=== PATIENT | male | born 1955 | race Caucasian/White ===

== ENCOUNTER 2017-12-01 12:16 | Emergency (ER) | payer SELFPAY ==
[~2017-12-01] VITALS: Ht 188 cm; Wt 74.0 kg
[~2017-12-01 12:16] MED LIST: Z.0.NO CURRENT MEDS
[2017-12-01 12:20] VITALS: BP 125/71; PULSE 74; RESP 16; TEMP 98.4; O2SAT 97
--- NOTE | 2017-12-01 12:32 | PD ---
HPI Chief Complaint: Neuro Symptoms/ Deficits Time Seen by Provider: 12:18 Travel History International Travel<30 days: No Contact w/Intl Traveler<30days: No Traveled to known affect area: No History of Present Illness HPI 62-year-old male complains of right-sided facial drooping and irritation to the right eye. Patient states that symptoms started yesterday. Patient states that he could not close the right eyelid completely since yesterday. Patient is complaining of tearing from the right eye. Patient complains of hearing trouble on the right ear. Patient states that the food taste differently since yesterday. Patient denies any headache. Patient denies any visual change. Patient denies any neck pain. Patient denies any chest pain or shortness of breath. Patient denies abdominal pain. Patient denies any focal weakness or numbness of the extremity. PFSH Past Medical History Diminished Hearing: No Social History Alcohol Use: No Tobacco Use: No Substance Use: No Allergies-Medications (Allergen,Severity, Reaction): Coded Allergies: No Known Allergies (Verified Adverse Reaction, Unknown, 12/01/17) Reported Meds & Prescriptions Reported Meds & Active Scripts Active No Active Prescriptions or Reported Medications Review of Systems General / Constitutional: No: Fever Eyes: Positive: Redness, Foreign Body Sensation, Tearing, No: Visual changes HENT: No: Headaches Cardiovascular: No: Chest Pain or Discomfort Respiratory: No: Shortness of Breath Gastrointestinal: No: Abdominal Pain Genitourinary: No: Dysuria Musculoskeletal: No: Pain Skin: No Rash Neurologic: Positive: Weakness Psychiatric: No: Depression Endocrine: No: Polydipsia Hematologic/Lymphatic: No: Easy Bruising Physical Exam Narrative GENERAL: Well-nourished, well-developed patient. SKIN: Focused skin assessment warm/dry. HEAD: Normocephalic. EYES: No scleral icterus. No injection or drainage. Pupils 2 mm equal reactive. NECK: Supple, trachea midline. No JVD or lymphadenopathy. CARDIOVASCULAR: Regular rate and rhythm without murmurs, gallops, or rubs. RESPIRATORY: Breath sounds equal bilaterally. No accessory muscle use. GASTROINTESTINAL: Abdomen soft, non-tender, nondistended. MUSCULOSKELETAL: No cyanosis, or edema. BACK: Nontender without obvious deformity. No CVA tenderness. Neurologic exam: Patient is awake and alert oriented 3. Patient has right- sided facial weakness including the forehead the right cheek the right corners of mouth and the right eyelid. Patient moves all extremity well. No obvious focal neurological deficit. Data Data Last Documented VS Vital Signs Date Time Temp Pulse Resp B/P (MAP) Pulse Ox O2 Delivery O2 Flow Rate FiO2 12/01/17 12:20 98.4 74 16 125/71 (89) 97 12/01/17 12:20 Room Air MDM Medical Decision Making Medical Screen Exam Complete: Yes Emergency Medical Condition: Yes Differential Diagnosis Differential diagnosis including Hoffman's palsy, TIA, CVA. Narrative Course 62-year-old male with right-sided facial weakness. Diagnosis Primary Impression: Hoffman's palsy Patient Instructions: General Instructions Additional Instructions: Take medications as directed. Artificial teardrops in right eye due to daytime. Patch the right eyelid at night. Follow-up with local physician and neurologist. Med/Other Pt SpecificInfo: Prescription(s) given Scripts Ranitidine (Zantac) 300 Mg Tab 300 MG PO DAILY, #10 TAB 0 Refills Prov: Socrates Tobar MD 12/01/17 Prednisone (Prednisone) 20 Mg Tab 20 MG PO BID, #14 TAB 0 Refills Prov: Socrates Tobar MD 12/01/17 Acyclovir (Zovirax) 800 Mg Tab 800 MG PO 5 TIMES A DAY for Mgmt Viral Infection, #35 TAB 0 Refills Prov: Socrates Tobar MD 12/01/17 Disposition: 01 DISCHARGE HOME Condition: Stable Socrates Tobar MD Dec 01, 2017 12:32
[2017-12-01] MEDS ORDERED: PRED20 PO (13:09)
[2017-12-01] MEDS ORDERED: ACYC-101 PO (13:09)
[2017-12-01] MEDS ORDERED: ZANT300T PO (13:10)
[2017-12-01 13:15] VITALS: BP 125/70
== END 2017-12-01 13:25 | disposition home or self-care (01) ==
LOC: PHED 12:16
DX: G51.0 Bell's palsy (principal)
CPT/HCPCS: 99284

== ENCOUNTER 2018-01-21 21:14 | Inpatient (IN) | payer MEDICARE, OTHER ==
[~2018-01-21] VITALS: Ht 188 cm; Wt 77.2 kg
[~2018-01-21 21:14] MED LIST changes: +ACYC-101 PO; +PRED20 PO; -Z.0.NO CURRENT MEDS; +ZANT300T PO
[2018-01-21 21:22] VITALS: BP 136/75; PULSE 75; RESP 18; O2SAT 96
[2018-01-21] MEDS ORDERED: MORPHINE SULFATE 4 MG/ML INJ IV PUSH ONE (21:30)
[2018-01-21] MEDS ORDERED: ONDANSETRON HCL 4 MG/2 ML VIAL IV ONE (21:30)
[2018-01-21] MEDS ORDERED: SODIUM CHLOR 0.9% 1000 ML INJ 1,000 ML IV SCH (21:30)
[2018-01-21 21:55] LABS: AUTOMATED NEUTROPHIL # 2.6 TH/MM3 (1.8-7.7); BASOPHIL % 0.8 % (0.0-2.0); EOSINOPHIL # 0.1 TH/MM3 (0-0.4); EOSINOPHIL % 1.7 % (0.0-4.0); HEMATOCRIT 43.7 % (39.0-51.0); HEMOGLOBIN 14.9 GM/DL (13.0-17.0); LYMPH % 38.6 % (9.0-44.0); MEAN CELL VOLUME 92.9 FL (80.0-100.0); MEAN CORPUSCULAR HEMOGLOBIN 31.6 PG (27.0-34.0); MEAN PLATELET VOLUME 11.2 FL (7.0-11.0); MONOCYTE # 0.5 TH/MM3 (0-0.9); NEUT % 48.9 % (16.0-70.0); PLATELET COUNT 109 TH/MM3 (150-450); RED BLOOD COUNT 4.71 MIL/MM3 (4.50-5.90); WHITE BLOOD COUNT 5.3 TH/MM3 (4.0-11.0)
--- NOTE | 2018-01-21 22:01 | PD ---
HPI Chief Complaint: Fall Time Seen by Provider: 21:28 Travel History International Travel<30 days: No Contact w/Intl Traveler<30days: No Traveled to known affect area: No History of Present Illness HPI The patient is a 62 year old male who presents to the [facility] emergency department with a history of reportedly falling while working on his garage door prior to arrival. The patient fell off of the chair when the garage door began to fall down. He landed on his left side and now has 10 out of 10 left hip pain. According to ambulance services the patient has shortening and external rotation noted. The patient was brought in and the position of comfort with his left hip flexed and externally rotated, pillow propping up his left knee. The patient denies hitting his head or losing consciousness. He denies having a headache or neck pain. He denies having any numbness or tingling to his arms or legs. The patient incidentally reports that he has been having some left hip pain even prior to this fall. The patient is noted to have facial asymmetry. 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 He denies having any chest pain, chest pressure, or shortness of breath. He denies having any abdominal pain, nausea, vomiting, or diarrhea. He denies having any other extremity pain. In route to this facility the patient was given an total 8 mg of morphine by ambulance services. 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 Diminished Hearing: No Medical other: Yes (BELLS PALSY) ?: Not Past Surgical History Narrative Surgical The patient's past surgical history is significant for right hand surgery. Other Surgery: Yes (right hand) Social History Alcohol Use: No Tobacco Use: Yes (cigs occas) Substance Use: Yes (MARIJUANA) Allergies-Medications (Allergen,Severity, Reaction): Coded Allergies: No Known Allergies (Verified Allergy, Unknown, 01/21/18) Reported Meds & Prescriptions Reported Meds & Active Scripts Active No Active Prescriptions or Reported Medications Review of Systems Except as stated in HPI: all other systems reviewed are Neg General / Constitutional: No: Fever Eyes: No: Visual changes HENT: No: Headaches Cardiovascular: No: Chest Pain or Discomfort Respiratory: No: Shortness of Breath Gastrointestinal: No: Abdominal Pain Genitourinary: No: Dysuria Musculoskeletal: Positive: Myalgias, Arthralgias, Limited ROM, Pain Skin: No Rash Neurologic: No: Weakness, Focal Abnormalities, Change in Mentation, Slurred Speech, Sensory Disturbance Psychiatric: No: Depression Endocrine: No: Polydipsia Hematologic/Lymphatic: No: Easy Bruising Physical Exam Narrative General: The patient is a well-developed well-nourished male, no acute distress. Head and Neck exam: Head is normocephalic atraumatic. No scalp tenderness on palpation. No step- off or deformity noted. No hematoma formation. Eyes: EOMI, pupils are equal round and reactive to light. Nose: Midline septum with pink mucous membranes Mouth: Dentition unremarkable. Moist mucus membranes. Posterior oropharynx is not erythematous. No tonsillar hypertrophy. Uvula midline. Airway patent. Neck: No palpable lymphadenopathy. No spinous process tenderness to palpation. No step-off or crepitus. No erythema or ecchymosis. No nuchal rigidity. No thyromegaly. The patient arrives without a cervical collar in place. Cardiovascular: Regular rate and rhythm without murmurs, gallops, or rubs. No pulse deficit to the extremities on simultaneous auscultation and palpation of his radial artery. Lungs: Clear to auscultation bilaterally. No wheezes, rhonchi, or rales. Abdomen: Soft, without tenderness to palpation in all 4 quadrants of the abdomen. No guarding, rebound, or rigidity. Normal bowel sounds are audible. No tenderness on palpation of McBurney's point. Negative Jackson sign. Extremities: No clubbing, cyanosis, or edema. 2+ pulses in all 4 extremities. The patient has his left knee propped up and his left hip held in flexion with external rotation. The patient has intact sensation over all toes. The patient has less than 3 second capillary refill. The patient reports feeling improved after the morphine and agreed to attempt to place his leg back on the bed so that better imaging can be obtained of his pelvis and left hip. The patient was able to extend his leg down to the bed with discomfort. The patient is noted to have some spasm in the thigh associated with movement. The patient reports having pain in the left proximal hip. Back: No spinous process tenderness to palpation. No costovertebral angle tenderness to palpation. Neurologic Exam: The patient on examination is noted to have paralysis of the right side of the face that he reports was diagnosis of Hoffman's palsy a few months ago. Otherwise the patient has intact cranial nerves. Strength is 5/5 in all 4 extremities. Intact sensation over all dermatomes. Skin Exam: No rash noted. Intact skin that is warm and dry. Data Data Last Documented VS Vital Signs Date Time Temp Pulse Resp B/P (MAP) Pulse Ox O2 Delivery O2 Flow Rate FiO2 01/21/18 21:30 98 Nasal Cannula 2.00 01/21/18 21:22 75 18 136/75 (95) Orders Orders Hip, Uni(Ap&Lat) W Ap Pelvis (01/21/18 21:28) Ice/Cold Pack (01/21/18 21:28) Electrocardiogram (01/21/18 21:28) Complete Blood Count With Diff (01/21/18 21:28) Comprehensive Metabolic Panel (01/21/18 21:28) Prothrombin Time / Inr (Pt) (01/21/18 21:28) Act Partial Throm Time (Ptt) (01/21/18 21:28) Magnesium (Mg) (01/21/18 21:28) Chest, Single Ap (01/21/18 21:28) Iv Access Insert/Monitor (01/21/18 21:28) Ecg Monitoring (01/21/18 21:28) Oximetry (01/21/18 21:28) Sodium Chlor 0.9% 1000 Ml Inj (Ns 1000 M (01/21/18 21:30) Morphine Inj (Morphine Inj) (01/21/18 21:30) Ondansetron Inj (Zofran Inj) (01/21/18 21:30) Admit Order (Ed Use Only) (01/21/18 22:54) Consult Orthopedic (01/21/18 ) Npo After Midnight W/ Po Meds (01/22/18 Breakfast) Acetamin-Hydrocod 325-5 Mg ([place] 5-325 (01/21/18 23:00) Acetamin-Hydrocod 325-10 Mg ([place] 10-32 (01/21/18 23:00) Naloxone Inj (Narcan Inj) (01/21/18 23:00) Vital Signs (Adult) Q4H (01/21/18 22:55) Activity Bed Rest (01/21/18 22:55) Intake + Output KENDRICK.QSHIFT (01/21/18 22:55) Sodium Chlor 0.45% 1000 Ml Inj (1/2 Ns 1 (01/21/18 23:00) Sodium Chloride 0.9% Flush (Ns Flush) (01/21/18 23:00) Sodium Chloride 0.9% Flush (Ns Flush) (01/22/18 09:00) Ondansetron Inj (Zofran Inj) (01/21/18 23:00) Comprehensive Metabolic Panel (01/22/18 06:00) Complete Blood Count With Diff (01/22/18 06:00) Pt Request For Service (01/21/18 22:55) Case Management Consult (01/21/18 22:55) Scd Bilateral/Knee High KENDRICK.BID (01/21/18 22:55) Naloxone Inj (Narcan Inj) (01/21/18 23:00) Docusate Sodium-Senna (Anahy-Colace) (01/22/18 09:00) Magnesium Hydroxide Liq (Milk Of Magnesi (01/21/18 23:00) Sennosides (Senokot) (01/21/18 23:00) Bisacodyl Supp (Dulcolax Supp) (01/21/18 23:00) Lactulose Liq (Lactulose Liq) (01/21/18 23:00) Labs Laboratory Tests Test 01/21/18 21:38 White Blood Count 5.3 TH/MM3 Red Blood Count 4.71 MIL/MM3 Hemoglobin 14.9 GM/DL Hematocrit 43.7 % Mean Corpuscular Volume 92.9 FL Mean Corpuscular Hemoglobin 31.6 PG Mean Corpuscular Hemoglobin Concent 34.0 % Red Cell Distribution Width 14.0 % Platelet Count 109 TH/MM3 Mean Platelet Volume 11.2 FL Neutrophils (%) (Auto) 48.9 % Lymphocytes (%) (Auto) 38.6 % Monocytes (%) (Auto) 10.0 % Eosinophils (%) (Auto) 1.7 % Basophils (%) (Auto) 0.8 % Neutrophils # (Auto) 2.6 TH/MM3 Lymphocytes # (Auto) 2.0 TH/MM3 Monocytes # (Auto) 0.5 TH/MM3 Eosinophils # (Auto) 0.1 TH/MM3 Basophils # (Auto) 0.0 TH/MM3 CBC Comment DIFF FINAL Differential Comment Prothrombin Time 11.0 SEC Prothromb Time International Ratio 1.1 RATIO Activated Partial Thromboplast Time 25.8 SEC Blood Urea Nitrogen 23 MG/DL Creatinine 1.05 MG/DL Random Glucose 82 MG/DL Total Protein 7.6 GM/DL Albumin 3.5 GM/DL Calcium Level 8.5 MG/DL Magnesium Level 2.0 MG/DL Alkaline Phosphatase 108 U/L Aspartate Amino Transf (AST/SGOT) 48 U/L Alanine Aminotransferase (ALT/SGPT) 77 U/L Total Bilirubin 0.4 MG/DL Sodium Level 143 MEQ/L Potassium Level 4.3 MEQ/L Chloride Level 108 MEQ/L Carbon Dioxide Level 25.6 MEQ/L Anion Gap 9 MEQ/L Estimat Glomerular Filtration Rate 71 ML/MIN [facility] Medical Decision Making Medical Screen Exam Complete: Yes Emergency Medical Condition: Yes Medical Record Reviewed: Yes Differential Diagnosis Left hip dislocation, versus left hip fracture, versus pelvis fracture, versus muscle strain Narrative Course During the course of the patient's emergency department visit, the patient's history, examination, and differential diagnosis were reviewed with the patient. The patient was placed on a desk monitor with oximetry and frequent blood pressure monitoring. The patient had IV access obtained and blood work sent for analysis. The patient was initially provided morphine for pain, Zofran for nausea, normal saline at 100 mL/h. The patient's laboratory studies were reviewed and remarkable for CBC & BMP Diagram 01/21/18 21:38 Total Protein 7.6, Albumin 3.5, Calcium Level 8.5, Magnesium Level 2.0, Alkaline Phosphatase 108, Aspartate Amino Transf (AST/SGOT) 48 H, Alanine Aminotransferase (ALT/SGPT) 77, Total Bilirubin 0.4 Radiology studies were reviewed and remarkable for Last Impressions Hip and Pelvis X-Ray 01/21/182127 Signed Impressions: Service Date/Time: Sunday, January 21, 2018 22:04 - CONCLUSION: Relatively nondisplaced intertrochanteric fracture proximal left femur. No dislocation. Edwardo Choi MD Chest X-Ray 01/21/182127 Signed Impressions: Service Date/Time: Sunday, January 21, 2018 22:00 - CONCLUSION: 1. No consolidation or effusion. Heart size enlarged. Tortuous aorta. Edwardo Choi MD The patient will be admitted to the hospital for an intertrochanteric fracture on the left of the left hip. The patient's results were discussed with the patient, including the plan of care. I explained that further testing and/ or monitoring is indicated based on the patient's history, examination, and/ or laboratory findings. Therefore, I recommended admission for additional evaluation. The patient expressed understanding and was agreeable with this plan. The patient was admitted to the hospital in stable condition and [facility] Physician Communication Physician Communication The patient's case including history, pertinent physical examination findings, and laboratory studies were discussed with Dr. Burger. It was agreed that the patient would be admitted to the [facility] service. Diagnosis Primary Impression: Fall Qualified Codes: W19.XXXA - Unspecified fall, initial encounter Additional Impression: Intertrochanteric fracture of left femur Qualified Codes: S72.145A - Nondisplaced intertrochanteric fracture of left femur, initial encounter for closed fracture Admitting Information Admitting Physician Requests: Admit Scripts No Active Prescriptions or Reported Meds Britney Cadena MD January 21, 2018 22:01
[2018-01-21 22:10] LABS: ALBUMIN 3.5 GM/DL (3.4-5.0); ALT (GPT) 77 U/L (12-78); AST (GOT) 48 U/L (15-37); BICARBONATE 25.6 MEQ/L (21.0-32.0); BLOOD UREA NITROGEN 23 MG/DL (7-18); CALCIUM 8.5 MG/DL (8.5-10.1); CHLORIDE 108 MEQ/L (98-107); CREATININE 1.05 MG/DL (0.60-1.30); GLOMERULAR FILTRATION RATE 71 ML/MIN (>89); GLUCOSE,RANDOM 82 MG/DL (74-106); SODIUM (NA) 143 MEQ/L (136-145)
[2018-01-21 22:11] LABS: ALKALINE PHOSPHATASE 108 U/L (45-117); TOTAL BILIRUBIN ADULT 0.4 MG/DL (0.2-1.0); TOTAL PROTEIN 7.6 GM/DL (6.4-8.2)
[2018-01-21 22:15] LABS: INTERNATIONAL NORMALIZED RATIO 1.1 RATIO
--- NOTE | 2018-01-21 22:35 | RADRPT ---
EXAM DATE/TIME: 01/21/2018 22:00 [facility] COMPARISON: No previous studies available for comparison. INDICATIONS : Evaluate for pneumonia, pneumothorax, or communicable disease. Pre op hip surgery. MEDICAL HISTORY : None. SURGICAL HISTORY : None. ENCOUNTER: Initial ACUITY: 1 day PAIN SCORE: 0/10 LOCATION: Bilateral chest FINDINGS: A single view of the chest demonstrates the lungs to be symmetrically aerated without evidence of mas s, infiltrate or effusion. The cardiomediastinal contours are mildly prominent with tortuous aorta. Osseous structures are intact. CONCLUSION: 1. No consolidation or effusion. Heart size enlarged. Tortuous aorta. Edwardo Choi MD on January 21, 2018 at 22:32 Board Certified Radiologist. This report was verified electronically.
--- NOTE | 2018-01-21 22:38 | RADRPT ---
EXAM DATE/TIME: 01/21/2018 22:04 [facility] COMPARISON: No previous studies available for comparison. INDICATIONS : Left hip pain after fall. MEDICAL HISTORY : None. SURGICAL HISTORY : None. ENCOUNTER: Initial ACUITY: 1 day PAIN SCORE: 10/10 LOCATION: Left hip. FINDINGS: There is a relatively nondisplaced intratrochanteric fracture of the proximal left femur. Right femur intact. CONCLUSION: Relatively nondisplaced intertrochanteric fracture proximal left femur. No dislocation. Edwardo Choi MD on January 21, 2018 at 22:34 Board Certified Radiologist. This report was verified electronically.
[2018-01-21] MEDS ORDERED: SODIUM CHLORIDE 0.9% FLUSH 10 ML FLUSH IV FLUSH PRN (23:00)
[2018-01-21] MEDS ORDERED: LACTULOSE SYRUP 20 GM/30 ML CUP PO PRN (23:00)
[2018-01-21] MEDS ORDERED: ONDANSETRON HCL 4 MG/2 ML VIAL IVP PRN (23:00)
[2018-01-21] MEDS ORDERED: MAGNESIUM HYDROXIDE SUSP 30 ML CUP PO PRN (23:00)
[2018-01-21] MEDS ORDERED: ACETAMINOPHEN/HYDROcodone 325 MG/5 MG TAB PO PRN (23:00)
[2018-01-21] MEDS ORDERED: NALOXONE HCL 0.4 MG/ML AMP IV PUSH PRN ×2 (23:00)
[2018-01-21] MEDS ORDERED: SENNOSIDES 8.6 MG TAB PO PRN (23:00)
[2018-01-21] MEDS ORDERED: BISACODYL 10 MG SUPP RECTAL PRN (23:00)
[2018-01-22] VITALS (9 sets, daily range): BP systolic 113–174; BP diastolic 53–72; PULSE 50–101; RESP 18–20; TEMP 97.8–99.7; O2SAT 94–100
[2018-01-22] MEDS: SODIUM CHLOR 0.45% 1000 ML INJ 1,000 ML IV SCH ×3 (00:20→19:37)
[2018-01-22] MEDS: MORPHINE SULFATE 4 MG/ML INJ IV PRN ×3 (00:28→15:22)
[2018-01-22] MEDS ORDERED: SODIUM CHLORID 0.9% 500 ML IV PRN (01:15)
[2018-01-22] MEDS ORDERED: CHLORHEXIDINE GLUCONATE 2 % 1 PACK (2 CLOTHS) TOPICAL PRN (01:15)
[2018-01-22] MEDS ORDERED: POVIDONE IODINE 5% (ANTISEPSIS KIT) 4 APPLICATIONS EACH NARE PRN (01:15)
[2018-01-22] MEDS ORDERED: LACTATED RINGER'S 1000 ML IV PRN (01:15)
--- NOTE | 2018-01-22 01:54 | HHI.HP ---
[facility] Unknown Admission Diagnosis left hip intertrochanteric fracture Diagnoses: Travel History International Travel<30 Days: No Contact w/Intl Traveler <30 Da: No Traveled to Known Affected Are: No History of Present Illness 52-year-old male with a history of Hoffman's palsy who presents having fallen from a ladder while fixing a garage door this afternoon. Patient reports immediate onset of severe sharp nonradiating pain in the left hip worse with movement. Denies any chest pain, shortness of breath, nausea, vomiting, lightheadedness, dizziness. Patient denies any history of chest pain with exertion. Patient says other than the excruciating pain he feels fine. Review of Systems Except as stated in HPI: all other systems reviewed are Neg Past Family Social History Past Medical History Hoffman's palsy Past Surgical History Right hand surgery Reported Medications patient denies taking any medications. Allergies: Coded Allergies: No Known Allergies (Verified Allergy, Unknown, 01/21/18) Family History Mother at age 87 secondary to Alzheimer's. Father at age 91 secondary to dementia. Social History Patient smoked 1 pack per month for the past 10 years. Patient smokes marijuana occasionally. Denies alcohol use. Denies cocaine or IV drug use. Physical Exam Vital Signs Vital Signs Date Time Temp Pulse Resp B/P (MAP) Pulse Ox O2 Delivery O2 Flow Rate FiO2 01/22/18 00:51 98.1 101 18 116/59 (78) 97 01/22/18 00:18 69 18 174/72 (106) 100 Nasal Cannula 2.00 01/21/18 21:30 98 Nasal Cannula 2.00 01/21/18 21:22 75 18 136/75 (95) 96 Physical Exam GENERAL: This is a well-nourished, well-developed patient, in no apparent distress. SKIN: No rashes, ecchymoses or lesions. Cool and dry. HEAD: Atraumatic. Normocephalic. No temporal or scalp tenderness. EYES: Pupils equal round and reactive. Extraocular motions intact. No scleral icterus. No injection or drainage. ENT: Nose without bleeding, purulent drainage or septal hematoma. Throat without erythema, tonsillar hypertrophy or exudate. Uvula midline. Airway patent. NECK: Trachea midline. No JVD or lymphadenopathy. Supple, nontender, no meningeal signs. CARDIOVASCULAR: Regular rate and rhythm without murmurs, gallops, or rubs. RESPIRATORY: Clear to auscultation. Breath sounds equal bilaterally. No wheezes , rales, or rhonchi. GASTROINTESTINAL: Abdomen soft, non-tender, nondistended. No hepato-splenomegaly , or palpable masses. No guarding. MUSCULOSKELETAL: Extremities without clubbing, cyanosis, or edema. No joint tenderness, effusion, or edema noted. No calf tenderness. Negative Homans sign bilaterally. NEUROLOGICAL: Awake and alert. Patient has right facial droop secondary to Hoffman 's palsy. Pupils equal round reactive. Motor and sensory grossly within normal limits. Five out of 5 muscle strength in all muscle groups. Slightly slurred speech which patient says is normal, secondary to Hoffman's palsy.. Laboratory Laboratory Tests Test 01/21/18 21:38 White Blood Count 5.3 Red Blood Count 4.71 Hemoglobin 14.9 Hematocrit 43.7 Mean Corpuscular Volume 92.9 Mean Corpuscular Hemoglobin 31.6 Mean Corpuscular Hemoglobin Concent 34.0 Red Cell Distribution Width 14.0 Platelet Count 109 Mean Platelet Volume 11.2 Neutrophils (%) (Auto) 48.9 Lymphocytes (%) (Auto) 38.6 Monocytes (%) (Auto) 10.0 Eosinophils (%) (Auto) 1.7 Basophils (%) (Auto) 0.8 Neutrophils # (Auto) 2.6 Lymphocytes # (Auto) 2.0 Monocytes # (Auto) 0.5 Eosinophils # (Auto) 0.1 Basophils # (Auto) 0.0 CBC Comment DIFF FINAL Differential Comment Prothrombin Time 11.0 Prothromb Time International Ratio 1.1 Activated Partial Thromboplast Time 25.8 Blood Urea Nitrogen 23 Creatinine 1.05 Random Glucose 82 Total Protein 7.6 Albumin 3.5 Calcium Level 8.5 Magnesium Level 2.0 Alkaline Phosphatase 108 Aspartate Amino Transf (AST/SGOT) 48 Alanine Aminotransferase (ALT/SGPT) 77 Total Bilirubin 0.4 Sodium Level 143 Potassium Level 4.3 Chloride Level 108 Carbon Dioxide Level 25.6 Anion Gap 9 Estimat Glomerular Filtration Rate 71 Result Diagram: 01/21/18213701/21/182137 Imaging Last Impressions Hip and Pelvis X-Ray 01/21/182127 Signed Impressions: Service Date/Time: Sunday, January 21, 2018 22:04 - CONCLUSION: Relatively nondisplaced intertrochanteric fracture proximal left femur. No dislocation. Edwardo Choi MD Chest X-Ray 01/21/182127 Signed Impressions: Service Date/Time: Sunday, January 21, 2018 22:00 - CONCLUSION: 1. No consolidation or effusion. Heart size enlarged. Tortuous aorta. Edwardo Choi MD Caprini VTE Risk Assessment Caprini VTE Risk Assessment: Mod/High Risk (score >= 2) Caprini Risk Assessment Model Point Value = 1 Point Value = 2 Point Value = 3 Point Value = 5 Age 41-60 Minor surgery BMI > 25 kg/m2 Swollen legs Varicose veins or History of unexplained or recurrent spontaneous Oral contraceptives or hormone replacement Sepsis (< 1 month) Serious lung disease, including pneumonia (< 1 month) Abnormal pulmonary function Acute myocardial infarction Congestive heart failure (< 1 month) History of inflammatory bowel disease Medical patient at bed rest Age 61-74 Arthroscopic surgery Major open surgery (> 45 min) Laparoscopic surgery (> 45 min) Malignancy Confined to bed (> 72 hours) Immobilizing plaster cast Central venous access Age >= 75 History of VTE Family history of VTE Factor V Leiden Prothrombin [id number] Lupus anticoagulant Anticardiolipin antibodies Elevated serum homocysteine Heparin-induced thrombocytopenia Other congenital or acquired thrombophilia Stroke (< 1 month) Elective arthroplasty Hip, pelvis, or leg fracture Acute spinal cord injury (< 1 month) Prophylaxis Regimen Total Risk Factor Score Risk Level Prophylaxis Regimen 0-1 Low Early ambulation 2 Moderate Order ONE of the following: *Sequential Compression Device (SCD) *Heparin 5000 units SQ BID 3-4 Higher Order ONE of the following medications: *Heparin 5000 units SQ TID *Enoxaparin/Lovenox 40 mg SQ daily (WT < 150 kg, CrCl > 30 mL/min) *Enoxaparin/Lovenox 30 mg SQ daily (WT < 150 kg, CrCl > 10-29 mL/min) *Enoxaparin/Lovenox 30 mg SQ BID (WT < 150 kg, CrCl > 30 mL/min) AND/OR *Sequential Compression Device (SCD) 5 or more Highest Order ONE of the following medications: *Heparin 5000 units SQ TID (Preferred with Epidurals) *Enoxaparin/Lovenox 40 mg SQ daily (WT < 150 kg, CrCl > 30 mL/min) *Enoxaparin/Lovenox 30 mg SQ daily (WT < 150 kg, CrCl > 10-29 mL/min) *Enoxaparin/Lovenox 30 mg SQ BID (WT < 150 kg, CrCl > 30 mL/min) AND *Sequential Compression Device (SCD) Assessment and Plan Assessment and Plan //Left sided relatively nondisplaced intertrochanteric fracture of the proximal left femur. //Status post mechanical fall from ladder = Narcotics for pain control Consult orthopedics. Bed rest. = Chest x-ray does show enlarged heart. Will get baseline EKG = Follow-up orthopedics recommendations. //Hoffman's palsy -With facial paralysis. Patient does not take any medications for this. //Tobacco abuse. Patient counseled against use. //Marijuana use. Patient counseled against use. Discussed Condition With Patient, nurse, ED physician. Physician Certification 2 Midnight Certification Type: Admission for Inpatient Services Order for Inpatient Services The services are ordered in accordance with Medicare regulations or non- Medicare payer requirements, as applicable. In the case of services not specified as inpatient-only, they are appropriately provided as inpatient services in accordance with the 2-midnight benchmark. Estimated LOS (days): 2 days is the estimated time the patient will need to remain in the hospital, assuming treatment plan goals are met and no additional complications. Post-Hospital Plan: Not yet determined Dinesh Burger MD January 22, 2018 01:54
[2018-01-22] MEDS: ACETAMINOPHEN/HYDROcodone 325 MG/10 MG TAB PO PRN ×3 (01:58→22:16)
[2018-01-22] MEDS: SODIUM CHLORIDE 0.9% FLUSH 10 ML FLUSH IV FLUSH SCH ×3 (08:04→22:17)
[2018-01-22] MEDS: DOCUSATE SODIUM 50 MG/SENNA 8.6 MG TAB PO SCH ×2 (08:04→22:16)
--- NOTE | 2018-01-22 09:34 | HHI.PR ---
Subjective Remarks Follow-up for left hip fracture. The patient reports continued diffuse left hip pain, rated 9/10. He states yesterday he was only 1 step up on a ladder when he accidentally fell onto the concrete, landing directly onto his left hip. He denies any lightheadedness, dizziness, chest pain, palpitations prior to the fall. He denies taking any medications. 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 He denies any other medical complaints at this time. He agrees to surgery. Objective Vitals Vital Signs Date Time Temp Pulse Resp B/P (MAP) Pulse Ox O2 Delivery O2 Flow Rate FiO2 01/22/18 08:50 98.3 50 18 113/53 (73) 94 01/22/18 03:55 99.7 99 18 119/55 (76) 98 01/22/18 00:51 98.1 101 18 116/59 (78) 97 01/22/18 00:18 69 18 174/72 (106) 100 Nasal Cannula 2.00 01/21/18 21:30 98 Nasal Cannula 2.00 01/21/18 21:22 75 18 136/75 (95) 96 I/O 01/21/18 01/21/18 01/21/18 01/22/18 01/22/18 01/22/18 07:00 15:00 23:00 07:00 15:00 23:00 Intake Total 1000 ml 0 ml Balance 1000 ml 0 ml Intake Oral 0 ml IV Total 1000 ml # Voids 1 # Bowel Movements 0 Result Diagram: 01/21/18213701/21/182137 Imaging Last Impressions Hip and Pelvis X-Ray 01/21/182127 Signed Impressions: Service Date/Time: Sunday, January 21, 2018 22:04 - CONCLUSION: Relatively nondisplaced intertrochanteric fracture proximal left femur. No dislocation. Edwardo Choi MD Chest X-Ray 01/21/182127 Signed Impressions: Service Date/Time: Sunday, January 21, 2018 22:00 - CONCLUSION: 1. No consolidation or effusion. Heart size enlarged. Tortuous aorta. Edwardo Choi MD Objective Remarks GENERAL: Well-nourished, well-developed male patient in [facility]. SKIN: Warm and dry. No rash. HEENT: Normocephalic. Atraumatic. Pupils equal and round. Mucous membranes pink and moist. NECK: Supple. Trachea midline. CARDIOVASCULAR: Regular rate and rhythm. No murmur appreciated. RESPIRATORY: No accessory muscle use. Clear to auscultation. Breath sounds equal bilaterally. GASTROINTESTINAL: Abdomen soft, non-tender, nondistended. Normoactive bowel sounds x4. MUSCULOSKELETAL: Extremities without clubbing, cyanosis, or edema. Left hip resting in external rotation, tender to palpation. Does not participate in range of motion exercises secondary to pain and known fracture. NEUROLOGICAL: Awake and alert. No obvious cranial nerve deficits. Motor grossly within normal limits. Moving all extremities spontaneously. 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 PSYCHIATRIC: Appropriate mood and affect; insight and judgment normal. Medications and IVs Current Medications Medications (Trade) Dose Ordered Sig/Mary Route Start Time Stop Time Status Last Admin ([place] 5-325 Mg) 1 tab Q4H PRN PO 01/21/18 23:00 ([place] 10-325 Mg) 1 tab Q4H PRN PO 01/21/18 23:00 01/22/18 10:16 (Morphine Inj) 4 mg Q3H PRN IV 01/21/18 23:15 01/22/18 03:44 Sodium Chloride 1,000 ml @ 75 mls/hr [id number] IV 01/21/18 23:00 01/22/18 12:20 (NS Flush) 2 ml UNSCH PRN IV FLUSH 01/21/18 23:00 (NS Flush) 2 ml BID IV FLUSH 01/22/18 09:00 01/22/18 08:04 (Zofran Inj) 4 mg Q6H PRN IVP 01/21/18 23:00 (Narcan Inj) 0.4 mg UNSCH PRN IV PUSH 01/21/18 23:00 (Anahy-Colace) 1 tab BID PO 01/22/18 09:00 (Milk Of Magnesia Liq) 30 ml Q12H PRN PO 01/21/18 23:00 (Senokot) 17.2 mg Q12H PRN PO 01/21/18 23:00 (Dulcolax Supp) 10 mg DAILY PRN RECTAL 01/21/18 23:00 (Lactulose Liq) 30 ml DAILY PRN PO 01/21/18 23:00 Lactated Ringer's 1,000 ml @ 30 mls/hr Q24H PRN IV 01/22/18 01:15 01/25/18 01:14 Sodium Chloride 500 ml @ 30 mls/hr [id number] PRN IV 01/22/18 01:15 01/25/18 01:14 (Betadine 5% Antisepsis Kit) 1 applic CREDIT RISK ANALYST PRN EACH NARE 01/22/18 01:15 01/25/18 01:14 (Chlorhexidine 2% Cloth) 3 pack CREDIT RISK ANALYST PRN TOPICAL 01/22/18 01:15 01/25/18 01:14 A/P Assessment and Plan 62-year-old male with history of Hoffman's palsy presents after a fall with a left hip fracture Left Femur Fracture: S/p mechanical fall from ladder, landing onto left hip -Hip/pelvis images reviewed, shows relatively nondisplaced intertrochanteric fracture proximal left femur. -Continue pain control with Saluda prn, IV morphine prn breakthrough pain -Consult ortho, plan for surgery today Hoffman's palsy: with facial paralysis. -Patient does not take any medications for this. -Continue outpatient follow up Tobacco/Marijuana Use: chronic -Patient counseled against use. DVT Prophylaxis: teds/SCDs to nonoperative leg for now; hold chemical prophylaxis with upcoming surgery. Blaire Flor PA-C January 22, 2018 9:34 am
[2018-01-22 10:29] LABS: AUTOMATED NEUTROPHIL # 6.4 TH/MM3 (1.8-7.7); BASOPHIL % 0.4 % (0.0-2.0); EOSINOPHIL % 0.3 % (0.0-4.0); HEMOGLOBIN 14.3 GM/DL (13.0-17.0); LYMPH % 17.2 % (9.0-44.0); LYMPHOCYTE # 1.5 TH/MM3 (1.0-4.8); MEAN CELL VOLUME 93.6 FL (80.0-100.0); MEAN CORPUSCULAR HEMOGLOBIN 31.9 PG (27.0-34.0); MEAN PLATELET VOLUME 11.4 FL (7.0-11.0); MONO % 8.3 % (0.0-8.0); MONOCYTE # 0.7 TH/MM3 (0-0.9); NEUT % 73.8 % (16.0-70.0); PLATELET COUNT 91 TH/MM3 (150-450); RED BLOOD COUNT 4.49 MIL/MM3 (4.50-5.90); RED CELL DISTRIBUTION WIDTH 13.9 % (11.6-17.2); WHITE BLOOD COUNT 8.6 TH/MM3 (4.0-11.0)
[2018-01-22 10:49] LABS: ALBUMIN 3.2 GM/DL (3.4-5.0); ALT (GPT) 65 U/L (12-78); AST (GOT) 41 U/L (15-37); BICARBONATE 28.8 MEQ/L (21.0-32.0); BLOOD UREA NITROGEN 18 MG/DL (7-18); CALCIUM 8.1 MG/DL (8.5-10.1); CHLORIDE 106 MEQ/L (98-107); CREATININE 0.96 MG/DL (0.60-1.30); GLOMERULAR FILTRATION RATE 79 ML/MIN (>89); GLUCOSE,RANDOM 91 MG/DL (74-106); SODIUM (NA) 142 MEQ/L (136-145)
--- NOTE | 2018-01-22 10:49 | EKG ---
Date Performed: 01/22/2018 Time Performed: 07:13:53 PTAGE: 62 years EKG: Sinus rhythm WITH FREQUENT VENTRICULAR PREMATURE COMPLEXES ABNORMAL RHYTHM ECG PREVIOUS TRACING : 01/21/2018 23.08 DOCTOR: Cristofer Gonzales Interpretating Date/Time 01/22/2018 10:46:50
[2018-01-22 10:52] LABS: ALKALINE PHOSPHATASE 90 U/L (45-117); TOTAL BILIRUBIN ADULT 0.8 MG/DL (0.2-1.0); TOTAL PROTEIN 7.2 GM/DL (6.4-8.2)
--- NOTE | 2018-01-22 11:00 | EKG ---
Date Performed: 01/21/2018 Time Performed: 23:08:52 PTAGE: 62 years EKG: Sinus rhythm WITH FREQUENT VENTRICULAR PREMATURE COMPLEXES ABNORMAL RHYTHM ECG NO PREVIOUS TRACING DOCTOR: Cristofer Gonzales Interpretating Date/Time 01/22/2018 11:00:12
[2018-01-22] MEDS ORDERED: LIDOCAINE HCL 1% PF 5 ML SYRINGE OTHER ONE (12:00)
[2018-01-22] MEDS ORDERED: SODIUM CHLOR 0.9% 250 ML INJ 250 ML IV ONE (12:00)
[2018-01-22] MEDS ORDERED: PHENYLEPH/NS 1000 MCG/10 ML SYR IV ONE (12:00)
[2018-01-22] MEDS ORDERED: ONDANSETRON HCL 4 MG/2 ML VIAL IV PUSH ONE (12:00)
[2018-01-22] MEDS ORDERED: DEXAMETHASONE SOD PHOS 4 MG/ML VIAL IV ONE (12:00)
[2018-01-22] MEDS ORDERED: PROPOFOL 200 MG/20 ML AMP IV ONE (12:00)
--- NOTE | 2018-01-22 13:37 | PD.CONS ---
HPI Service Orthopedic Surgeons Consult Requested By Reason for Consult Left intertrochanteric femur fracture Primary Care Physician Unknown Admission Diagnosis left hip intertrochanteric fracture Diagnoses: Chief Complaint: Left hip pain History of Present Illness 52-year-old male with a history of Hoffman's palsy who presents having fallen from a ladder while fixing a garage door this afternoon. Patient reports immediate onset of severe sharp nonradiating pain in the left hip worse with movement. Denies any chest pain, shortness of breath, nausea, vomiting, lightheadedness, dizziness. Patient denies any history of chest pain with exertion. Review of Systems Constitutional: DENIES: Fever Endocrine: DENIES: Polyuria Eyes: DENIES: Blurred vision Ears, nose, mouth, throat: DENIES: Throat pain Respiratory: DENIES: Cough Cardiovascular: DENIES: Chest pain Gastrointestinal: DENIES: Abdominal pain Genitourinary: DENIES: Urinary incontinence Musculoskeletal: COMPLAINS OF: Joint pain, Muscle aches Integumentary: DENIES: Rash Hematologic/lymphatic: DENIES: Bruising Immunologic/allergic: DENIES: Eczema Neurologic: DENIES: Abnormal gait Psychiatric: DENIES: Anxiety Past Family Social History Past Medical History Hoffman's palsy Past Surgical History Right hand surgery Reported Medications Denies Allergies: Coded Allergies: No Known Allergies (Verified Allergy, Unknown, 01/21/18) Active Ordered Medications Current Medications Medications (Trade) Dose Ordered Sig/Mary Route Start Time Stop Time Status Last Admin ([place] 5-325 Mg) 1 tab Q4H PRN PO 01/21/18 23:00 ([place] 10-325 Mg) 1 tab Q4H PRN PO 01/21/18 23:00 01/22/18 10:16 (Morphine Inj) 4 mg Q3H PRN IV 01/21/18 23:15 01/22/18 03:44 Sodium Chloride 1,000 ml @ 75 mls/hr [id number] IV 01/21/18 23:00 01/22/18 12:20 (NS Flush) 2 ml UNSCH PRN IV FLUSH 01/21/18 23:00 (NS Flush) 2 ml BID IV FLUSH 01/22/18 09:00 01/22/18 08:04 (Zofran Inj) 4 mg Q6H PRN IVP 01/21/18 23:00 (Narcan Inj) 0.4 mg UNSCH PRN IV PUSH 01/21/18 23:00 (Anahy-Colace) 1 tab BID PO 01/22/18 09:00 (Milk Of Magnesia Liq) 30 ml Q12H PRN PO 01/21/18 23:00 (Senokot) 17.2 mg Q12H PRN PO 01/21/18 23:00 (Dulcolax Supp) 10 mg DAILY PRN RECTAL 01/21/18 23:00 (Lactulose Liq) 30 ml DAILY PRN PO 01/21/18 23:00 Lactated Ringer's 1,000 ml @ 30 mls/hr Q24H PRN IV 01/22/18 01:15 01/25/18 01:14 Sodium Chloride 500 ml @ 30 mls/hr [id number] PRN IV 01/22/18 01:15 01/25/18 01:14 (Betadine 5% Antisepsis Kit) 1 applic TELEGRAPH OFFICE TELEPHONE CLERK PRN EACH NARE 01/22/18 01:15 01/25/18 01:14 (Chlorhexidine 2% Cloth) 3 pack TELEGRAPH OFFICE TELEPHONE CLERK PRN TOPICAL 01/22/18 01:15 01/25/18 01:14 Reported Meds & Active Scripts Active No Active Prescriptions or Reported Medications Family History Mother at age 87 secondary to Alzheimer's. Father at age 91 secondary to dementia. Social History Patient smoked 1 pack per month for the past 10 years. Patient smokes marijuana occasionally. Denies alcohol use. Denies cocaine or IV drug use. Physical Exam Vital Signs Vital Signs Date Time Temp Pulse Resp B/P (MAP) Pulse Ox O2 Delivery O2 Flow Rate FiO2 01/22/18 11:30 98.3 64 18 114/59 (77) 96 01/22/18 11:16 17 01/22/18 08:50 98.3 50 18 113/53 (73) 94 01/22/18 03:55 99.7 99 18 119/55 (76) 98 01/22/18 00:51 98.1 101 18 116/59 (78) 97 01/22/18 00:18 69 18 174/72 (106) 100 Nasal Cannula 2.00 01/21/18 21:30 98 Nasal Cannula 2.00 01/21/18 21:22 75 18 136/75 (95) 96 Physical Exam Awake, alert, no acute distress. Normocephalic, Hoffman's palsy Pupils equal No JVD. Moist mucous membranes Nonlabored respirations Regular rate Soft nontender abdomen Left lower extremity: Positive logroll. Unable to assess range of motion of hip and knee due to discomfort. Patient appears neurologically intact distally with positive EHL, FHL, dorsiflexion and plantar flexion. Sensation intact. Brisk cap refill. Bilateral upper extremities and right lower extremity: No visible deformities or tenderness palpation. Full active range of motion and strength throughout. Sensation intact. Brisk cap refill. No rash Normal affect Laboratory Laboratory Tests Test 01/21/18 21:38 01/22/18 07:05 White Blood Count 5.3 8.6 Red Blood Count 4.71 4.49 Hemoglobin 14.9 14.3 Hematocrit 43.7 42.0 Mean Corpuscular Volume 92.9 93.6 Mean Corpuscular Hemoglobin 31.6 31.9 Mean Corpuscular Hemoglobin Concent 34.0 34.0 Red Cell Distribution Width 14.0 13.9 Platelet Count 109 91 Mean Platelet Volume 11.2 11.4 Neutrophils (%) (Auto) 48.9 73.8 Lymphocytes (%) (Auto) 38.6 17.2 Monocytes (%) (Auto) 10.0 8.3 Eosinophils (%) (Auto) 1.7 0.3 Basophils (%) (Auto) 0.8 0.4 Neutrophils # (Auto) 2.6 6.4 Lymphocytes # (Auto) 2.0 1.5 Monocytes # (Auto) 0.5 0.7 Eosinophils # (Auto) 0.1 0.0 Basophils # (Auto) 0.0 0.0 CBC Comment DIFF FINAL AUTO DIFF Differential Comment AUTO DIFF CONFIRMED Prothrombin Time 11.0 Prothromb Time International Ratio 1.1 Activated Partial Thromboplast Time 25.8 Blood Urea Nitrogen 23 18 Creatinine 1.05 0.96 Random Glucose 82 91 Total Protein 7.6 7.2 Albumin 3.5 3.2 Calcium Level 8.5 8.1 Magnesium Level 2.0 Alkaline Phosphatase 108 90 Aspartate Amino Transf (AST/SGOT) 48 41 Alanine Aminotransferase (ALT/SGPT) 77 65 Total Bilirubin 0.4 0.8 Sodium Level 143 142 Potassium Level 4.3 4.3 Chloride Level 108 106 Carbon Dioxide Level 25.6 28.8 Anion Gap 9 7 Estimat Glomerular Filtration Rate 71 79 Platelet Estimate LOW Platelet Morphology Comment NORMAL Red Cell Morphology Comment NORMAL Result Diagram: 01/22/18 0705 01/22/18704 Imaging Last 48 hours Impressions Hip and Pelvis X-Ray 01/21/182127 Signed Impressions: Service Date/Time: Sunday, January 21, 2018 22:04 - CONCLUSION: Relatively nondisplaced intertrochanteric fracture proximal left femur. No dislocation. Edwardo Choi MD Chest X-Ray 01/21/182127 Signed Impressions: Service Date/Time: Sunday, January 21, 2018 22:00 - CONCLUSION: 1. No consolidation or effusion. Heart size enlarged. Tortuous aorta. Edwardo Choi MD Assessment & Plan Assessment and Plan 62-year-old gentleman who presented after a fall from ladder with a minimally displaced left intertrochanteric femur fracture. Options of management were discussed with the patient and his sister. Given his intertrochanteric femur fracture, I recommended operative intervention in the form of intramedullary nail of his left femur. Risks of surgery including but not limited to: Infection, nonunion or malunion, hardware malposition or failure, neurovascular injury, persistent hip pain and/or stiffness, possible need for further surgery, possible periprosthetic fracture, and other unforeseen complications were discussed with the patient. At this time he has consented to the procedure. He has been n.p.o. since midnight for surgery later today. Postoperative course was discussed with the patient. I did explain to the patient that most often postoperatively I do allow some weightbearing often partial weightbearing on the operative extremity. I did discuss with the patient that often these fractures do take somewhere around 3 months to fully heal. Patient was counseled on smoking cessation and the effects of smoking has on orthopedic fractures. Angela Keyes MD January 22, 2018 13:37
[2018-01-22] MEDS ORDERED: VANCOMYCIN HCL 1000 MG VIAL ONE (17:23)
[2018-01-22] MEDS ORDERED: GENTAMICIN SULFATE 80 MG/2 ML VIAL ONE (17:23)
[2018-01-22] MEDS ORDERED: ceFAZolin 2 GM PREMIX 50 ML ONE (17:23)
--- NOTE | 2018-01-22 18:24 | PD.OP ---
cc: Angela Keyes MD Operative Report Date of Surgery: January 22, 2018 Preoperative Diagnosis: Closed left intertrochanteric femur fracture Postoperative Diagnosis: Same Procedure: Intramedullary nail left intertrochanteric femur fracture Anesthesia: General Surgeon: Angela Keyes Apron Trimmer(s): None Operation and Findings: EBL: 75 cc Complications: None Specimens: None Indications for procedure: Patient is a 62-year-old gentleman presented after a fall off a ladder with left hip pain. Patient was found to have a closed left minimally displaced intertrochanteric femur fracture. Recommendation for intramedullary nail of his left intertrochanteric femur fracture. Risks of surgery including but not limited to: Infection, nonunion or malunion, hardware malposition or failure, neurovascular injury, periprosthetic fracture, persistent hip pain and/or stiffness, possible need for further surgery, and other unforeseen complications were all discussed with the patient. At this time he has consented to the above-mentioned procedure. Description of procedure: Patient was brought back to the operating room where general anesthesia then ensued. Patient was then carefully positioned on the fracture table with all bony prominences well-padded. Patient was prepped and draped in standard sterile fashion. Preoperative antibiotics were given within 1 hour of incision. A timeout was performed to verify the correct patient, side , site and procedure to be performed. The fracture was then identified on fluoroscopy and reduced with traction and rotation. A small approximate 1-2 inch incision was made just proximal and posterior to the greater trochanter. Sharp dissection through skin, subcutaneous tissue and fascia was performed. A starting wire was then placed to the tip of the greater trochanter and advanced to the lesser trochanteric region on both AP and lateral radiographs. An opening reamer was then utilized to allow access to the femoral canal and advanced to the lesser trochanteric region. A Synthes TFN 11 mm diameter nail was then inserted into the femur and advanced into appropriate position on both AP and lateral radiographs. The lateral guide for the proximal screw was then inserted and a lateral incision made through the skin, subcutaneous tissue and fascia to allow the guide to sit on the lateral cortex of the proximal femur. A guidewire was then placed into the femoral neck and into the femoral head in a center-center position on both AP and lateral radiographs. This was subsequently measured, drilled and a proximal locking screw placed. This again was verified to be in a center-center position of the femoral head on both AP and lateral radiographs. The proximal locking screw into the nail was then advanced and backed off a half of turn to allow for compression. Compression was performed through the proximal screw. The guide sleeve for the distal locking screw was then placed and a another lateral based incision was made through the skin, subcutaneous tissue and fascia. The guide was placed to the lateral cortex of the femur. This was then drilled, measured and a distal locking screw placed. The insertion handle and jig was then removed. Final radiographs were obtained which demonstrate the hardware is in appropriate position of the fracture was well reduced. The incisions were irrigated with normal saline laden with gentamicin. The deep tissue was then closed with 0 Vicryl suture and the subcutaneous tissue with 2-0 Vicryl suture. The skin was then closed with adan and sterile dressings applied. Patient was then carefully transition back to his hospital bed off the operating room table and awoken from general anesthesia. Disposition: Patient with partial weightbearing 50% to the left lower extremity. Plan will be to mobilize the patient on postop day 1. Patient will be started on anticoagulation, Lovenox. Angela Keyes MD January 22, 2018 18:24
[2018-01-22] MEDS ORDERED: SODIUM CHLORIDE 0.9% FLUSH 10 ML FLUSH IV FLUSH PRN (18:30)
[2018-01-22] MEDS ORDERED: Post-op Orders (for Pharmacy) XX ONE (18:30)
[2018-01-22] MEDS ORDERED: MIDAZOLAM HCL 2 MG/2 ML VIAL ONE (18:42)
[2018-01-22] MEDS ORDERED: MORPHINE SULFATE 4 MG/ML INJ ONE (18:43)
--- NOTE | 2018-01-22 18:45 | RADRPT ---
EXAM DATE/TIME: 01/22/2018 18:07 [facility] COMPARISON: HIP LEFT (AP&LAT 2/3VWS) W AP PELVIS, January 21, 2018, 22:04. INDICATIONS : Left troch nail. MEDICAL HISTORY : Smoker. SURGICAL HISTORY : None. ENCOUNTER: Subsequent ACUITY: 2 days PAIN SCORE: Non-responsive. LOCATION: Left hip. FINDINGS: A two view examination of the left hip was performed. There is a short intramedullary debra. There is a compression screw through the femoral neck and head successfully reducing the intertrochanteric fem oral neck fracture. The femoral neck is well aligned. CONCLUSION: Successful ORIF. Justin Pickens MD on January 22, 2018 at 18:42 Board Certified Radiologist. This report was verified electronically.
[2018-01-22] MEDS ORDERED: *morphine SULFATE 4 MG/ML PERIprocedure ONLY ONE (18:56)
[2018-01-22] MEDS ORDERED: DO NOT ADM ANY ANTICOAGULANT DRUGS PRN (19:15)
[2018-01-23] VITALS: BP 110/60; PULSE 58; RESP 20; TEMP 97.8; O2SAT 99
[2018-01-23 04:00] VITALS: BP 111/57; PULSE 56; RESP 20; TEMP 97.3; O2SAT 97
[2018-01-23] MEDS: ACETAMINOPHEN/HYDROcodone 325 MG/10 MG TAB PO PRN ×5 (05:18→23:33)
[2018-01-23] MEDS: ENOXAPARIN SODIUM 40 MG/0.4 ML SYRINGE SQ SCH (06:40)
--- NOTE | 2018-01-23 07:42 | PD.ORT.PN ---
Subjective Subjective Remarks Patient resting chronically. He states his pain is improved since preop. Objective Vitals Vital Signs Date Time Temp Pulse Resp B/P (MAP) Pulse Ox O2 Delivery O2 Flow Rate FiO2 01/23/18 04:00 97.3 56 20 111/57 (75) 97 01/23/18 00:00 97.8 58 20 110/60 (77) 99 01/22/18 20:10 90 14 111/56 (74) 96 Nasal Cannula 3 01/22/18 20:00 98.0 76 20 123/67 (85) 96 01/22/18 19:45 93 14 113/58 (76) 97 Nasal Cannula 3 01/22/18 19:30 93 14 118/62 (80) 96 Nasal Cannula 3 01/22/18 19:15 94 14 130/61 (84) 95 Nasal Cannula 3 01/22/18 19:00 95 14 133/62 (85) 97 Nasal Cannula 3 01/22/18 18:45 96 14 128/58 (81) 95 Nasal Cannula 3 01/22/18 18:35 98.2 104 14 140/72 (94) 96 Nasal Cannula 3 01/22/18 16:23 97.8 52 18 126/56 (79) 96 01/22/18 15:30 97.8 52 18 126/56 (79) 96 01/22/18 15:27 17 01/22/18 13:50 97.8 52 18 126/56 (79) 96 01/22/18 11:30 98.3 64 18 114/59 (77) 96 01/22/18 11:16 17 01/22/18 08:50 98.3 50 18 113/53 (73) 94 I/O 01/22/18 01/22/18 01/22/18 01/23/18 01/23/18 01/23/18 07:00 15:00 23:00 07:00 15:00 23:00 Intake Total 0 ml 1000 ml 320 ml Output Total 75 ml 1200 ml Balance 0 ml 925 ml -880 ml Intake Oral 0 ml 320 ml Other 1000 ml Output Urine Total 1200 ml Estimated Blood Loss 75 ml # Voids 1 3 # Bowel Movements 0 0 0 Result Diagram: 01/22/1870401/22/18704 Objective Remarks awake, alert, no acute distress Left lower extremity: Dressings in place without any significant drainage. Neurovascularly intact distally. Brisk cap refill. Negative Homans Assessment & Plan Assessment and Plan 62-year-old gentleman, POD#1 s/p IMN L intertroch 1. Partial weightbearing 50% left lower extremity. 2. PT for mobilization 3. Lovenox for anticoagulation 4. Dressing changes to start on postop day 2 5. Patient to follow up in 2 weeks in my clinic. Angela Keyes MD January 23, 2018 07:42
[2018-01-23 08:00] VITALS: BP 99/59; PULSE 77; RESP 18; TEMP 98.2; O2SAT 91
[2018-01-23] MEDS: DOCUSATE SODIUM 50 MG/SENNA 8.6 MG TAB PO SCH ×2 (08:45→19:45)
[2018-01-23] MEDS: SODIUM CHLORIDE 0.9% FLUSH 10 ML FLUSH IV FLUSH SCH ×4 (08:45→19:45)
--- NOTE | 2018-01-23 09:35 | HHI.PR ---
Subjective Remarks Follow up for left hip fracture s/p intramedullary nail fixation yesterday. The patient reports his left hip pain is tolerable at the moment. He has not yet attempted ambulation today. Denies any other medical complaints including no fever/chills, headache, lightheadedness, dizziness, chest pain, shortness of breath, or abdominal complaints. Tolerating oral intake. Awaiting PT eval. Objective Vitals Vital Signs Date Time Temp Pulse Resp B/P (MAP) Pulse Ox O2 Delivery O2 Flow Rate FiO2 01/23/18 04:00 97.3 56 20 111/57 (75) 97 01/23/18 00:00 97.8 58 20 110/60 (77) 99 01/22/18 20:10 90 14 111/56 (74) 96 Nasal Cannula 3 01/22/18 20:00 98.0 76 20 123/67 (85) 96 01/22/18 19:45 93 14 113/58 (76) 97 Nasal Cannula 3 01/22/18 19:30 93 14 118/62 (80) 96 Nasal Cannula 3 01/22/18 19:15 94 14 130/61 (84) 95 Nasal Cannula 3 01/22/18 19:00 95 14 133/62 (85) 97 Nasal Cannula 3 01/22/18 18:45 96 14 128/58 (81) 95 Nasal Cannula 3 01/22/18 18:35 98.2 104 14 140/72 (94) 96 Nasal Cannula 3 01/22/18 16:23 97.8 52 18 126/56 (79) 96 01/22/18 15:30 97.8 52 18 126/56 (79) 96 01/22/18 15:27 17 01/22/18 13:50 97.8 52 18 126/56 (79) 96 01/22/18 11:30 98.3 64 18 114/59 (77) 96 01/22/18 11:16 17 I/O 01/22/18 01/22/18 01/22/18 01/23/18 01/23/18 01/23/18 07:00 15:00 23:00 07:00 15:00 23:00 Intake Total 0 ml 1000 ml 520 ml Output Total 75 ml 1200 ml Balance 0 ml 925 ml -680 ml Intake Oral 0 ml 320 ml IV Total 200 ml Other 1000 ml Output Urine Total 1200 ml Estimated Blood Loss 75 ml # Voids 1 3 # Bowel Movements 0 0 0 Result Diagram: 01/22/18 0701/22/18 0705 Imaging Last Impressions Hip X-Ray 01/22/18 0000 Signed Impressions: Service Date/Time: Monday, January 22, 2018 18:07 - CONCLUSION: Successful ORIF. Justin Pickens MD Hip and Pelvis X-Ray 01/21/182127 Signed Impressions: Service Date/Time: Sunday, January 21, 2018 22:04 - CONCLUSION: Relatively nondisplaced intertrochanteric fracture proximal left femur. No dislocation. Edwardo Choi MD Chest X-Ray 01/21/182127 Signed Impressions: Service Date/Time: Sunday, January 21, 2018 22:00 - CONCLUSION: 1. No consolidation or effusion. Heart size enlarged. Tortuous aorta. Edwardo Choi MD Objective Remarks GENERAL: Well-nourished, well-developed pleasant male patient in [facility]. SKIN: Warm and dry. No rash. HEENT: Normocephalic. Atraumatic. Pupils equal and round. Mucous membranes pink and moist. CARDIOVASCULAR: Regular rate and rhythm. No murmur appreciated. RESPIRATORY: No accessory muscle use. Clear to auscultation. Breath sounds equal bilaterally. GASTROINTESTINAL: Abdomen soft, non-tender, nondistended. Normoactive bowel sounds x4. MUSCULOSKELETAL: Extremities without clubbing, cyanosis, or edema. Left lateral hip surgical dressing in place, CDI. NEUROLOGICAL: Awake and alert. No obvious cranial nerve deficits. Motor grossly within normal limits. Moving all extremities spontaneously. 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 PSYCHIATRIC: Appropriate mood and affect; insight and judgment normal. Procedures 01/22/18 - Intramedullary nail left intertrochanteric femur fracture by Dr. Keyes. Medications and IVs Current Medications Medications (Trade) Dose Ordered Sig/Mary Route Start Time Stop Time Status Last Admin (Stockwell 5-325 Mg) 1 tab Q4H PRN PO 01/21/18 23:00 (Stockwell 10-325 Mg) 1 tab Q4H PRN PO 01/21/18 23:00 01/23/18 10:48 (Morphine Inj) 4 mg Q3H PRN IV 5/7/18 23:15 01/22/18 15:22 Sodium Chloride 1,000 ml @ 75 mls/hr [id number] IV 01/21/18 23:00 01/22/18 19:37 (NS Flush) 2 ml UNSCH PRN IV FLUSH 01/21/18 23:00 (NS Flush) 2 ml BID IV FLUSH 01/22/18 09:00 01/22/18 22:17 (Zofran Inj) 4 mg Q6H PRN IVP 01/21/18 23:00 (Narcan Inj) 0.4 mg UNSCH PRN IV PUSH 01/21/18 23:00 (Anahy-Colace) 1 tab BID PO 01/22/18 09:00 01/22/18 22:16 (Milk Of Magnesia Liq) 30 ml Q12H PRN PO 01/21/18 23:00 (Senokot) 17.2 mg Q12H PRN PO 01/21/18 23:00 (Dulcolax Supp) 10 mg DAILY PRN RECTAL 01/21/18 23:00 (Lactulose Liq) 30 ml DAILY PRN PO 01/21/18 23:00 Lactated Ringer's 1,000 ml @ 30 mls/hr Q24H PRN IV 01/22/18 01:15 01/25/18 01:14 Sodium Chloride 500 ml @ 30 mls/hr [id number] PRN IV 01/22/18 01:15 01/25/18 01:14 (Betadine 5% Antisepsis Kit) 1 applic [employer] PRN EACH NARE 01/22/18 01:15 01/25/18 01:14 (Chlorhexidine 2% Cloth) 3 pack [employer] PRN TOPICAL 01/22/18 01:15 01/25/18 01:14 (NS Flush) 2 ml UNSCH PRN IV FLUSH 01/22/18 18:30 (NS Flush) 2 ml BID IV FLUSH 01/22/18 21:00 (Lovenox Inj) 40 mg DAILY SQ 01/23/18 07:00 01/23/18 06:40 ([facility] Nursing Information) ALL NURSING DEPARTME... 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 No LOC. -Hip/pelvis images reviewed, shows relatively nondisplaced intertrochanteric fracture proximal left femur. -Continue pain control with Stockwell prn, IV morphine prn breakthrough pain -Consult ortho -S/p Intramedullary nail left intertrochanteric femur on 01/22 -Ortho recommending partial WB 50% to LLE -PT consulted, awaiting evaluation, unclear if patient can go home with [facility] or if needs rehab Hoffman's palsy: with facial paralysis. -Patient does not take any medications for this. -Continue outpatient follow up Tobacco/Marijuana Use: chronic -Patient counseled against use. DVT Prophylaxis: Lovenox sq per ortho Discharge Planning Await PT eval. May need rehab placement. [id number] signed with case management. Possible discharge today vs tomorrow depending on PT eval. Blaire Flor PA-C January 23, 2018 9:35 am
[2018-01-23 12:00] VITALS: BP 132/56; PULSE 50; RESP 18; TEMP 97.6; O2SAT 93
[2018-01-23] MEDS: SODIUM CHLOR 0.45% 1000 ML INJ 1,000 ML IV SCH (15:00)
[2018-01-23 16:00] VITALS: BP 118/58; PULSE 48; RESP 20; TEMP 98.4; O2SAT 93
[2018-01-23 20:00] VITALS: BP 115/59; PULSE 95; RESP 18; TEMP 98.3; O2SAT 96
[2018-01-23] MEDS ORDERED: ONDANSETRON ODT 4 MG TAB SL PRN (22:45)
[2018-01-24] VITALS: BP 106/55; PULSE 56; RESP 20; TEMP 98.6; O2SAT 97
[2018-01-24 04:00] VITALS: BP 117/64; PULSE 55; RESP 20; TEMP 99.6; O2SAT 95
[2018-01-24] MEDS: SODIUM CHLOR 0.45% 1000 ML INJ 1,000 ML IV SCH ×2 (04:20→17:40)
[2018-01-24] MEDS: ACETAMINOPHEN/HYDROcodone 325 MG/10 MG TAB PO PRN ×5 (04:31→22:55)
[2018-01-24 08:13] VITALS: BP 105/53; PULSE 50; RESP 18; TEMP 99.2; O2SAT 95
[2018-01-24] MEDS: ENOXAPARIN SODIUM 40 MG/0.4 ML SYRINGE SQ SCH (08:33)
[2018-01-24] MEDS: DOCUSATE SODIUM 50 MG/SENNA 8.6 MG TAB PO SCH ×2 (08:33→20:54)
[2018-01-24] MEDS: SODIUM CHLORIDE 0.9% FLUSH 10 ML FLUSH IV FLUSH SCH ×4 (08:34→20:54)
--- NOTE | 2018-01-24 10:56 | HHI.PR ---
Subjective Remarks Reports overall pain control. Would like to go to end ago. States that he lives by himself and would be pike to go to a short-term rehab. No other complaints at this time. Objective Vitals Vital Signs Date Time Temp Pulse Resp B/P (MAP) Pulse Ox O2 Delivery O2 Flow Rate FiO2 01/24/18 08:13 99.2 50 18 105/53 (70) 95 01/24/18 04:00 99.6 55 20 117/64 (81) 95 01/24/18 00:00 98.6 56 20 106/55 (72) 97 01/23/18 20:00 98.3 95 18 115/59 (77) 96 01/23/18 17:19 17 01/23/18 16:00 98.4 48 20 118/58 (78) 93 01/23/18 12:00 97.6 50 18 132/56 (81) 93 I/O 01/23/18 01/23/18 01/23/18 01/24/18 01/24/18 01/24/18 07:00 15:00 23:00 07:00 15:00 23:00 Intake Total 520 ml 360 ml 320 ml Output Total 1200 ml 900 ml Balance -680 ml 360 ml -580 ml Intake Oral 320 ml 360 ml 320 ml IV Total 200 ml Output Urine Total 1200 ml 900 ml # Voids 2 # Bowel Movements 0 3 Result Diagram: 01/22/18 0701/22/18 07 Objective Remarks GENERAL: This is a well-nourished, well-developed patient, in no apparent distress. CARDIOVASCULAR: Regular rate and rhythm RESPIRATORY: Clear to auscultation. Breath sounds equal bilaterally. No wheezes , rales, or rhonchi. MUSCULOSKELETAL: Extremities without clubbing, cyanosis, or edema. Left hip pain is clean dry and intact. NEURO: Alert & Oriented x4 to person, place, time, situation. Procedures 01/22/18 - Intramedullary nail left intertrochanteric femur fracture by Dr. Keyes. 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 No LOC. -Presenting hip/pelvis x-ray shows relatively nondisplaced intertrochanteric fracture proximal left femur. -S/p postoperative day #2 intramedullary nail left intertrochanteric femur on 01/22 -Ortho recommending partial WB 50% to LLE -Continue physical therapy and anticipate discharge to detention facility. Hoffman's palsy: with facial paralysis, chronic. -Patient does not take any medications for this. -Continue outpatient follow up Tobacco/Marijuana Use: chronic -Patient counseled against use. DVT Prophylaxis: Lovenox sq per ortho Discharge Planning Anticipate discharge to detention facility today. Sofia Souza MD January 24, 2018 10:56
[2018-01-24] MEDS ORDERED: HYDR-3516 PO (11:02)
[2018-01-24] MEDS ORDERED: ENOX40P SQ (11:02)
[2018-01-24] MEDS ORDERED: MAGN30S PO (11:04)
[2018-01-24] MEDS ORDERED: PERI PO (11:04)
--- NOTE | 2018-01-24 11:08 | HHI.DS ---
Discharge Summary Admission Date January 21, 2018 at 23:28 Discharge Date: January 24, 2018 Admitting Diagnosis left hip intertrochanteric fracture (1) Intertrochanteric fracture of left femur ICD Code: S72.142A - Displaced intertrochanteric fracture of left femur, initial encounter for closed fracture Diagnosis: Principal Status: Acute Procedures 01/22/18 - Intramedullary nail left intertrochanteric femur fracture by Dr. Keyes. Brief History - From Admission 52-year-old male with a history of Hoffman's palsy who presents having fallen from a ladder while fixing a garage door this afternoon. Patient reports immediate onset of severe sharp nonradiating pain in the left hip worse with movement. Denies any chest pain, shortness of breath, nausea, vomiting, lightheadedness, dizziness. Patient denies any history of chest pain with exertion. Patient says other than the excruciating pain he feels fine. CBC/BMP: 01/22/18 0705 01/22/18 0705 Significant Findings Laboratory Tests Test 01/21/18 21:38 01/22/18 07:05 Platelet Count 109 TH/MM3 (150-450) 91 TH/MM3 (150-450) Mean Platelet Volume 11.2 FL (7.0-11.0) 11.4 FL (7.0-11.0) Monocytes (%) (Auto) 10.0 % (0.0-8.0) 8.3 % (0.0-8.0) Blood Urea Nitrogen 23 MG/DL (7-18) Aspartate Amino Transf (AST/SGOT) 48 U/L (15-37) 41 U/L (15-37) Chloride Level 108 MEQ/L (98-107) Estimat Glomerular Filtration Rate 71 ML/MIN (>89) 79 ML/MIN (>89) Red Blood Count 4.49 MIL/MM3 (4.50-5.90) Neutrophils (%) (Auto) 73.8 % (16.0-70.0) Platelet Estimate LOW (NORMAL) Albumin 3.2 GM/DL (3.4-5.0) Calcium Level 8.1 MG/DL (8.5-10.1) PE at Discharge GENERAL: This is a well-nourished, well-developed patient, in no apparent distress. CARDIOVASCULAR: Regular rate and rhythm RESPIRATORY: Clear to auscultation. Breath sounds equal bilaterally. No wheezes , rales, or rhonchi. MUSCULOSKELETAL: Extremities without clubbing, cyanosis, or edema. Left hip pain is clean dry and intact. NEURO: Alert & Oriented x4 to person, place, time, situation. Hospital Course 62-year-old white male admitted for left hip intertrochanteric fracture due to a fall in which he underwent intramedullary nail of the left femur fracture by Dr. Schilling in orthopedic surgery. He had an uncomplicated postoperative course and did well with postoperative care including pain control, physical therapy, bowel regimen. At this time, patient has gained maximum benefit from hospitalization is ready to be discharged to a penitentiary facility as patient lives alone for continued further physical therapy. He should follow- up with orthopedic surgery and continue with DVT prophylaxis. Pt Condition on Discharge: Good Discharge Disposition: Discharge to SNF Discharge Time: <= 30 minutes Discharge Instructions DIET: Follow Instructions for: As Tolerated, No Restrictions Activities you can perform: Regular-No Restrictions Follow up Referrals: Orthopedics - 2 Weeks @ [facility] with Angela Keyes MD New Medications: Enoxaparin Inj (Lovenox Inj) 40 Mg/0.4 Ml Syr 40 MG SQ DAILY for Prevent Blood Clot for 14 Days, INJECTION Hydrocodone/Acetaminophen (Hydrocodone-Acetamin 5-325 mg) 5 Mg-325 Mg Tablet 1 TAB PO Q4H PRN for acute pain, #30 TAB Magnesium Hydroxide (Qc Milk of Magnesia) 400 Mg/5 Ml Yulisa 30 ML PO Q12H PRN for Mild constipation, #10 ML Sennosides-Docusate Sodium (Gnp Senna Plus 8.6-50 mg) 8.6 Mg-50 Mg Tab 1 TAB PO BID for Constipation, #20 TAB Sofia Souza MD January 24, 2018 11:08
[2018-01-24 15:51] VITALS: BP 112/54; PULSE 56; RESP 18; TEMP 98.9; O2SAT 96
[2018-01-24 20:00] VITALS: BP 121/76; PULSE 51; RESP 18; TEMP 97.7; O2SAT 96
[2018-01-25] VITALS: BP 106/58; PULSE 50; RESP 17; TEMP 98.9; O2SAT 97
[2018-01-25] MEDS: SODIUM CHLOR 0.45% 1000 ML INJ 1,000 ML IV SCH (07:00)
[2018-01-25] MEDS: ENOXAPARIN SODIUM 40 MG/0.4 ML SYRINGE SQ SCH (07:52)
[2018-01-25] MEDS: DOCUSATE SODIUM 50 MG/SENNA 8.6 MG TAB PO SCH (07:52)
[2018-01-25] MEDS: SODIUM CHLORIDE 0.9% FLUSH 10 ML FLUSH IV FLUSH SCH ×2 (07:52→07:53)
[2018-01-25] MEDS: ACETAMINOPHEN/HYDROcodone 325 MG/10 MG TAB PO PRN (07:52)
[2018-01-25 08:00] VITALS: BP_SYST 117; BP_SYST 138; BP_DIAS 67; BP_DIAS 70; PULSE 74; PULSE 75; RESP 16; RESP 18; TEMP 98; O2SAT 95; O2SAT 97
--- NOTE | 2018-01-25 08:59 | HHI.PR ---
Subjective Remarks Reports he had a difficult night due to not being able to sleep comfortably. Pain overall control. Looking forward to going to rehab. Objective Vitals Vital Signs Date Time Temp Pulse Resp B/P (MAP) Pulse Ox O2 Delivery O2 Flow Rate FiO2 01/25/18 00:00 98.9 50 17 106/58 (74) 97 01/24/18 20:00 97.7 51 18 121/76 (91) 96 01/24/18 15:51 98.9 56 18 112/54 (73) 96 I/O 01/24/18 01/24/18 01/24/18 01/25/18 01/25/18 01/25/18 07:00 15:00 23:00 07:00 15:00 23:00 Intake Total 320 ml 2700 ml Output Total 900 ml 1450 ml Balance -580 ml 1250 ml Intake Oral 320 ml 2700 ml Output Urine Total 900 ml 1450 ml # Voids 2 # Bowel Movements 3 1 Result Diagram: 01/22/1870401/22/18704 Objective Remarks GENERAL: This is a well-nourished, well-developed patient, in no apparent distress. CARDIOVASCULAR: Regular rate and rhythm RESPIRATORY: Clear to auscultation. Breath sounds equal bilaterally. No wheezes , rales, or rhonchi. MUSCULOSKELETAL: Extremities without clubbing, cyanosis, or edema. Left hip bandage is clean dry and intact. NEURO: Alert & Oriented x4 to person, place, time, situation. Procedures 01/22/18 - Intramedullary nail left intertrochanteric femur fracture by Dr. Keyes. 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 No LOC. -Presenting hip/pelvis x-ray shows relatively nondisplaced intertrochanteric fracture proximal left femur. -S/p postoperative day #3 intramedullary nail left intertrochanteric femur on 01/22 -Ortho recommending partial WB 50% to LLE -Continue physical therapy and anticipate discharge to senior care facility. Hoffman's palsy: with facial paralysis, chronic. -Patient does not take any medications for this. -Continue outpatient follow up Tobacco/Marijuana Use: chronic -Patient counseled against use. DVT Prophylaxis: Lovenox Discharge Planning Anticipate discharge to senior care facility today, jasmy[facility]. Problem Qualifiers (1) Intertrochanteric fracture of left femur: Qualified Codes: S72.145A - Nondisplaced intertrochanteric fracture of left femur, initial encounter for closed fracture Sofia Souza MD January 25, 2018 08:59
== END 2018-01-25 12:01 | DRG 482 ==
LOC: NEPE 21:14 → NEDA 22:58 → OBSVTOIN 23:28 → N06B 01-22 00:20
PROVIDERS: ADMIT Family Medicine; ATTEND Family Medicine
PROC: 0QH736Z Insertion of Intramedullary Internal Fixation Device into Left Upper Femur, Percutaneous Approach (ICD-10-PCS; principal; 2018-01-22 17:14)
DX: S72.145A Nondisplaced intertrochanteric fracture of left femur, initial encounter for closed fracture (principal); F17.210 Nicotine dependence, cigarettes, uncomplicated; G51.0 Bell's palsy; F12.90 Cannabis use, unspecified, uncomplicated; I51.7 Cardiomegaly; W11.XXXA Fall on and from ladder, initial encounter
CPT/HCPCS: 71045; 73502; 76000; 80053; 83735; 85025; 85610; 85730; 93005; 94150; 96361; 96374; 96375; C1713; J0690; J1100; J1580; J1650; J2250; J2270; J2370; J2405; J3010; J3370; J7030; J7050